=== PATIENT | male | born 1975 | race Caucasian/White ===

== ENCOUNTER 2017-03-15 19:38 | Emergency (ER) | payer BC ==
[2017-03-15 19:48] VITALS: BP 141/85
[2017-03-15] MEDS ORDERED: DOXYcycline CAP(*) 100 MG PO ONE (20:31)
--- NOTE | 2017-03-15 20:31 | ED ---
Skin Complaint - HPI Summary HPI Summary: 41M presents with bulls eye rash on left arm and fatigue for a day. He does not remember a tick bite. He denies any fever. He denies any cough, neck stiffness, n/v/d/c, or abdominal pain. He denies any new products or food. - History of Current Complaint Chief Complaint: EDRashSkinAbscess Time Seen by Provider: 03/15/17 20:07 Stated Complaint: BULLS EYE RASH ON ARM Pain Intensity: 2 - Allergy/Home Medications Allergies/Adverse Reactions: Allergies Allergy/AdvReac Type Severity Reaction Status Date / Time No Known Allergies Allergy Verified 03/15/17 19:48 PMH/Surg Hx/FS Hx/Imm Hx Endocrine/Hematology History: Denies: Hx Anticoagulant Therapy Respiratory History: Denies: Hx Asthma Infectious Disease History: No Infectious Disease History: Denies: Traveled Outside the [place] in Last 30 Days - Family History Known Family History: Positive: Cardiac Disease - Social History Alcohol Use: Occasionally Substance Use Type: Reports: None Smoking Status (MU): Never Smoked Tobacco Review of Systems Positive: Fatigue. Negative: Fever Negative: Chest Pain Negative: Shortness Of Breath Positive: Rash All Other Systems Reviewed And Are Negative: Yes Physical Exam Triage Information Reviewed: Yes Vital Signs On Initial Exam: Initial Vitals Temp Pulse Resp BP Pulse Ox 97.8 F 77 14 141/85 97 03/15/17 19:47 03/15/17 19:47 03/15/17 19:47 03/15/17 19:47 03/15/17 19:47 Vital Signs Reviewed: Yes Appearance: Positive: Well-Appearing Skin: Positive: Other - bulls eyes on left arm inner Head/Face: Positive: Normal Head/Face Inspection Eyes: Positive: Normal, Conjunctiva Clear ENT: Positive: Normal ENT inspection, Pharynx normal, TMs normal Respiratory/Lung Sounds: Positive: Clear to Auscultation, Breath Sounds Present Cardiovascular: Positive: Normal, RRR Diagnostics - Vital Signs Vital Signs Temp Pulse Resp BP Pulse Ox 03/15/17 19:47 97.8 F 77 14 141/85 97 - Laboratory Lab Statement: Any lab studies that have been ordered have been reviewed, and results considered in the medical decision making process. Course/Dx - Course Course Of Treatment: 41M presents with bulls eye rash on left arm and fatigue for a day. He does not remember a tick bite. He denies any fever. He denies any cough, neck stiffness, n/v/d/c, or abdominal pain. He denies any new products or food. left arm bulls eye. will treat with doxcycline for lyme. patient understands and agrees with plan - Differential Diagnoses - Skin Complaint Differential Diagnoses: Cellulitis, Contact Dermatitis, Tick Born Illness - Diagnoses Provider Diagnoses: Lyme disease Discharge - Discharge Plan Condition: Good Disposition: HOME Prescriptions: DOXYcycline CAP(*) [DOXYcycline 100MG CAP(*)] 100 mg PO BID #41 cap Patient Education Materials: Lyme Disease (ED) Referrals: Dimitri Helm MD [Primary Care Provider] - Additional Instructions: Take antibiotic twice a day for 21 days, first dose given in ED Take with food Wear sunscreen as will make light sensitive Return to ED if develop any new or worsening symptoms
== END 2017-03-15 21:23 | disposition home or self-care (01) ==
LOC: ED 19:38
DX: A69.20 Lyme disease, unspecified (principal)
CPT/HCPCS: 99282; A9270-GY